=== PATIENT | male | born 1995 | race Caucasian/White ===

== ENCOUNTER 2019-05-02 16:52 | Emergency (ER) | payer OTHER ==
[~2019-05-02] VITALS: Ht 185.4 cm; Wt 111.6 kg
[2019-05-02 19:22] LABS: BASO # 0.1 10^3/uL (0.0-0.2); BASO % 0.5 % (0.0-1.0); EOS # 0.3 10^3/uL (0.0-0.50); EOS % 3.3 % (0.0-3.0); HEMATOCRIT 42.6 % (42.0-52.0); HEMOGLOBIN 14.5 g/dl (13.5-17.5); LYMPH # 3.9 10^3/uL (1.5-6.5); LYMPH % 41.7 % (24.0-44.0); MEAN CORPUSCULAR HEMOGLOBIN 31.5 pg (27.0-33.0); MEAN CORPUSCULAR VOLUME 92.4 fl (80.0-96.0); MONO # 0.6 10^3/uL (0.0-0.8); NEUTROPHILS # 4.6 10^3/uL (1.8-7.7); NEUTROPHILS % 48.4 % (36.0-66.0); PLATELET COUNT, AUTOMATED 178 10^3/uL (150-450); RED BLOOD COUNT 4.61 10^6/uL (4.30-6.10); WHITE BLOOD COUNT 9.4 10^3/uL (4.0-10.0)
[2019-05-02 19:52] LABS: CPK CREATINE PHOSPHOKINASE 412 U/L (39-308); MB/CK RELATIVE INDEX 0.73 (< OR =4); TROPONIN I < 0.02 NG/ML (< 0.10)
[2019-05-02 20:11] VITALS: BP 121/69
--- NOTE | 2019-05-02 21:00 | ECGEPIP ---
[facility] - ED Test Date: 2019-05-02 Pat Name: LENARD PARKER Department: Room: - Gender: Male Emergency Management Program Specialist: LIYAH : 1995 Requested By: JOIE ALAS Order Number: [id number] Reading MD: Kaden Carrillo Measurements Intervals [place] Rate: 59 P: 42 NV: 183 QRS: 82 QRSD: 99 T: 39 QT: 375 QTc: 373 Interpretive Statements SINUS BRADYCARDIA BENIGN EARLY REPOLARIZATION NO PRIORS FOR COMPARISON Electronically Signed on 05-02-2019 21:00:35 EDT by Kaden Carrillo
--- NOTE | 2019-05-03 07:12 | REP ---
Clinical: chest pain Comparison: 05/02/2019 . Technique: PA and lateral. Findings: The mediastinum and cardiac silhouette are normal. The lung de [place]ira are clear and without acute consolidation, effusion, or pneumothorax. The skeletal structures are intact and normal. Impression: 1. No acute cardiopulmonary process. Electronically Signed by Rebel Saavedra MD 05/03/2019 07:02 A
== END 2019-05-02 20:14 | disposition home or self-care (01) ==
LOC: M ED 16:52
DX: R07.1 Chest pain on breathing (principal); R00.1 Bradycardia, unspecified; Z56.6 Other physical and mental strain related to work; F41.9 Anxiety disorder, unspecified; G47.30 Sleep apnea, unspecified; Z77.098 Contact with and (suspected) exposure to other hazardous, chiefly nonmedicinal, chemicals